=== PATIENT | female | born 1985 | race Hispanic/Latino ===

== ENCOUNTER 2016-02-28 18:02 | Emergency (ER) | payer OTHER ==
[~2016-02-28] VITALS: Ht 160 cm; Wt 101.4 kg
[~2016-02-28 18:02] MED LIST: AMIT10TA6 PO; ASPI-973 PO; CYCL5TAB PO; DIAZ5TAB3 PO; GABA-502 PO; INSU100C8 SUBQ; INSU100V7 SUBQ; PNV91TAB3 PO; SERT50TA9 PO; TRAM50TA2 PO
[2016-02-28 18:05] VITALS: BP 131/83; PULSE 102; RESP 20; O2SAT 96
[2016-02-28 18:50] LABS: BASOPHILS % (AUTO) 0.2 % (0-3); EOSINOPHILS % (AUTO) 2.6 % (0-5); MONOCYTES % (AUTO) 6.1 % (4-12); Mean Corpuscular Hemoglobin 29.1 pg (27.0-35.0); NEUTROPHILS % (AUTO) 69.3 % (40-74); Platelet Count 357 bil/L (150-400)
[2016-02-28 19:09] LABS: Magnesium 1.7 mg/dL (1.6-2.6)
--- NOTE | 2016-02-28 19:27 | ED.REPORT ---
HPI-NVD Date of Service Feb 28, 2016 ED Provider: Mj Ha MD Pt is a 30 year old female with a history of DM who is 11 weeks who presents to the ED with complaints of nausea, vomiting and diarrhea that started earlier today. Pt reports many episodes of watery diarrhea, but denies noticing any blood.Pt reports 3 episodes of vomiting, no hematemesis. She reports that she is supposed to start antibiotics today for a recently diagnosed sinus infection. She reports minimal dysuria Pt denies any vaginal bleeding, sick contacts, abdominal pain, fevers, cough, or any other symptoms. Nursing Notes Stated Complaint: VOMITING/DIARRHEA Chief Complaint: General Complaint Nursing Notes Reviewed: Yes Allergies: Coded Allergies: hydrocodone (Verified Allergy, Severe, RASH, 07/28/15) PT TOLERATES OXYCODONE Scheduled Amitriptyline (Amitriptyline) 10 Mg Tablet 10 MG PO TID Aspirin (Aspirin) 81 Mg Tablet 81 MG PO DAILY Gabapentin (Gabapentin) 300 Mg Capsule 300 MG PO TID Insulin Aspart (NovoLOG U100 Insulin Vial) 100 U/Ml U 30-40 UNIT SUBQ TIDAC Insulin Glargine (Lantus U100 Insulin Vial) 100 Unit/Ml Vial 25-35 UNIT SUBQ BID Sertraline HCl (Sertraline) 50 Mg Tablet 50 MG PO DAILY Scheduled PRN Cyclobenzaprine (Cyclobenzaprine) N Tablet 5-10 MG PO HS PRN PRN For Spasm Diazepam (Diazepam) 5 Mg Tablet 5 MG PO TID PRN PRN For Anxiety Metoclopramide (Reglan) 5 Mg Tablet 5 MG PO QID PRN PRN For Nausea Tramadol (Tramadol) 50 Mg Tablet 50 MG PO HS PRN PRN For Pain Miscellaneous Medications Pnv95/Ferrous Fumarate/FA ( Caplet) 28 Mg Iron-800 Mcg Tablet 1 EACH PO General Time Seen by MD: 19:25 Chief Complaint Nausea, Vomiting, Diarrhea Hx Obtained From: Patient Arrived By: Walk-in Onset Occurred: 9 - 12 hours ago Symptom Duration: Since onset Vomiting: Vomiting food Diarrhea: Diarrhea is watery Location: : No pain Severity: Current: No pain currently Severity: Maximum: No pain Similar Sx Previous: Yes Past Medical History Past Medical History Notes: 11 weeks Past Medical History Diabetes mellitus, on insulin Neuropathy Fatty Liver Hypertension Past Surgical History Reports: Tonsillectomy Family History noncontributory Smoking History Never Smoker Social History Alcohol Use: Denies alcohol use Drug Use: Denies drug use Other Social History: Good social support, Local resident Occupation lives with children Ambulatory Status Independent Review of Systems Constitutional: Denies: Chills, Fever, Malaise, Weakness - generalized GI: Reports: Diarrhea, Nausea, Vomiting, Denies: Abdominal pain, Constipation Skin: Denies Diaphoresis Neurologic: Denies: Change LOC, Dizziness, Headache, Syncope, Weakness Complete sys rev & neg: except as marked. Female: Reports: Physical Exam Initial Vital Signs Vital Signs (First) Date Time Temp Pulse Resp B/P Pulse Ox O2 Delivery O2 Flow Rate FiO2 02/28/16 18:05 36.3 102 20 131/83 96 Room Air Initial VS: Reviewed Head / Eyes: Atraumatic, Normocephalic, PERRL ENT: Mucous membranes moist, Conjunctiva normal, No scleral icterus Neck: Supple, Non-tender, Full range of motion Respiratory: Breath sounds normal, Clear to auscultation, No respiratory distress Cardiovascular: Regular rate & rhythm, Heart sounds normal, Intact distal pulses Skin: Warm, Dry, No cyanosis Neurologic: Alert, Oriented, Nonfocal Psychiatric: Mood/affect normal, Behavior normal, Normal thought content General/Constitutional: Awake, Alert, Well appearing, Well developed, Well nourished, Cooperative Abdomen: Atraumatic, Soft, Non-tender, BS normoactive Interpretation & Diagnostics Lab Results Interpretation Result Diagram: 02/28/16 1838 02/28/16 1838 Test 02/28/16 18:38 02/28/16 20:08 White Blood Count 14.6th/mm3 (3.8-10.1) Red Blood Count 4.44mil/mm3 (3.90-5.20) Hemoglobin 12.9g/dL (12.0-15.6) Hematocrit 38.2% (35.0-46.0) Mean Corpuscular Volume 86.0fL (81-100) Mean Corpuscular Hemoglobin 29.1pg (27.0-35.0) Mean Corpuscular Hemoglobin Concent 33.8% (32.0-37.0) Red Cell Distribution Width 13.6% (12.3-15.4) Platelet Count 357bil/L (150-400) Neutrophils (%) (Auto) 69.3% (40-74) Lymphocytes (%) (Auto) 21.5% (14-46) Monocytes (%) (Auto) 6.1% (4-12) Eosinophils (%) (Auto) 2.6% (0-5) Basophils (%) (Auto) 0.2% (0-3) Sodium Level 134mEq/L (134-144) Potassium Level 4.2mEq/L (3.5-5.2) Chloride Level 98mEq/L (97-108) Carbon Dioxide Level 23mmol/L (18-29) Blood Urea Nitrogen 8mg/dL (6-20) Creatinine 0.40mg/dL (0.57-1.00) Estimat Glomerular Filtration Rate 265mL/min (>59) Glucose Level 140mg/dL (60-99) Calcium Level 10.0mg/dL (8.5-10.1) Magnesium Level 1.7mg/dL (1.6-2.6) Total Bilirubin 0.2mg/dL (0.0-1.2) Aspartate Amino Transf (AST/SGOT) 23U/L (0-50) Alanine Aminotransferase (ALT/SGPT) 21U/L (0-32) Alkaline Phosphatase 98U/L (25-150) Total Protein 8.4g/dL (6.4-8.4) Albumin 3.6g/dL (3.4-5.0) Hold [place] Top Tube Received (Received) Urine Color Yellow (YELLOW) Urine Appearance Hazy (CLEAR,HAZY) Urine pH 5.5 (5.0-8.0) Urine Specific [place] 1.026 (1.003-1.035) Urine Protein Negativemg/dL (NEG,TRACE) Urine Glucose (UA) Negativemg/dL (NEGATIVE) Urine Ketones Negativemg/dL (NEGATIVE) Urine Occult Blood Negative (NEGATIVE) Urine Nitrite Negative (NEGATIVE) Urine Bilirubin Negative (NEGATIVE) Urine Urobilinogen Normalmg/dL (NORMAL) Urine Leukocyte Esterase Negative (NEGATIVE) Urine RBC 0-2/hpf (0-2) Urine WBC 0-5/hpf (0-5) Urine Epithelial Cells Few/hpf (NONE-MOD) Urine Crystals Oxalic acid crystals (NONE Urine Bacteria Few/hpf (NONE-FEW) Urine Hyaline Casts None/lpf (NONE) Urine Granular Casts None seen (NONE SEEN) Urine Waxy Casts None seen (NONE SEEN) Urine Red Blood Cell Casts None seen (NONE SEEN) Urine White Blood Cell Casts None seen (NONE SEEN) Urine Mucus Present (None Seen) Urine Trichomonas None seen (NONE SEEN) Urine Yeast None (NONE SEEN) Urinalysis Comment None Urine Culture Reflexed Not indicated Re-Eval/Medical Decision Med Decision/Clinical Course 30-year-old female 11 weeks presenting with diarrhea and vomiting since earlier today. Reports watery diarrhea nonbloody nonbilious vomiting. Mild abdominal cramping. Vital signs stable. Labs unremarkable. Patient was given 4 mg Zofran and 1 L normal saline and felt much better. Likely viral gastroenteritis. Gave prescription for Reglan to use as needed for nausea and vomiting. Return precautions given. Source of Hx: Old records Re-Evaluation/Progress : Time of Eval: 21:17 Re-Evaluation/Progress Note: Pt is rechecked and informed of her diagnosis and the plan to discharge her at this time. She understands and agrees, all questions are addressed. Counseled Regarding: Diagnosis, Lab results, When/why to return to ED Discharge & Departure Impression: Primary Impression: Gastroenteritis Disposition: Home Discharge Condition All VS Reviewed: Yes Condition: Stable Patient Instructions: Gastroenteritis (ED) Additional Instructions: I believe you are experiencing a gastroenteritis today. Please increase your hydration, and take Zofran as needed to control your nausea. Follow up with your primary care later this week, or sooner if your symptoms are not improving. Return to the emergency department with any intractable vomiting, fevers, or any other worsening or concerning symptoms. I hope you start to feel better soon Referrals: Murphy Roger MD (PCP) [place] Attestation Portions of this note were transcribed by Beverley Valderrama. I, Dr. Ha personally performed the history, physical exam and medical decision-making; I reviewed and confirmed the accuracy of the information in the transcribed note. Signed by: Patricia Kyle, 02/28/2016 [id number] copies to: Murphy Roger MD, Ben M MD Feb 28, 2016 19:27 KELSEY VALDERRAMA Feb 28, 2016 19:55
[2016-02-28] MEDS ORDERED: 0.9% Sodium Chloride 1,000 ML IV ONE (19:53)
[2016-02-28] MEDS ORDERED: Ondansetron 2 mg/mL 2 mL Inj IVPUSH ONE (19:55)
[2016-02-28 20:34] LABS: APPEARANCE,URINE HAZY (CLEAR,HAZY); COLOR,URINE YELLOW (YELLOW); OCCULT BLOOD,URINE NEGATIVE (NEGATIVE); PH,URINE 5.5 (5.0-8.0); UROBILINOGEN,URINE NORMAL (NORMAL)
[2016-02-28] MEDS ORDERED: METO5TAB78 PO (21:22)
[2016-02-28 21:38] VITALS: BP 124/78; PULSE 97; RESP 16; O2SAT 97
== END 2016-02-28 21:39 | disposition home or self-care (01) ==
LOC: SED 18:02
DX: O99.611 Diseases of the digestive system complicating pregnancy, first trimester (principal); K52.9 Noninfective gastroenteritis and colitis, unspecified; E11.9 Type 2 diabetes mellitus without complications; I10 Essential (primary) hypertension; Z3A.11 11 weeks gestation of pregnancy; Z79.4 Long term (current) use of insulin; Z79.82 Long term (current) use of aspirin; Z88.5 Allergy status to narcotic agent
CPT/HCPCS: 36415; 80053; 81000; 83735; 85025; 96361; 96374; 99284; J2405; J7030

== ENCOUNTER 2016-03-18 09:17 | Emergency (ER) | payer OTHER ==
[~2016-03-18] VITALS: Ht 160 cm; Wt 102.3 kg
[~2016-03-18 09:17] MED LIST changes: +METO5TAB78 PO
[2016-03-18 09:24] VITALS: BP 125/80; PULSE 96; RESP 16; O2SAT 97
--- NOTE | 2016-03-18 09:34 | ED.REPORT ---
HPI-Headache Date of Service Mar 18, 2016 ED Provider: Dr. Pretty 30 year old female with a history of migraines and current 14 week presents to the ED due to a severe frontal headache since last night. Pain is exacerbated with movement of the head. Associated symptoms include nausea. Pt states this feels similar to previous migraines. Pt denies injury, fever, vomiting and weakness. Nursing Notes Stated Complaint: MIGRAINE Chief Complaint: Headache Nursing Notes Reviewed: Yes Allergies: Coded Allergies: hydrocodone (Verified Allergy, Severe, RASH, 07/28/15) PT TOLERATES OXYCODONE Scheduled Amitriptyline (Amitriptyline) 10 Mg Tablet 10 MG PO TID Aspirin (Aspirin) 81 Mg Tablet 81 MG PO DAILY Gabapentin (Gabapentin) 300 Mg Capsule 300 MG PO TID Insulin Aspart (NovoLOG U100 Insulin Vial) 100 U/Ml U 30-40 UNIT SUBQ TIDAC Insulin Glargine (Lantus U100 Insulin Vial) 100 Unit/Ml Vial 25-35 UNIT SUBQ BID Sertraline HCl (Sertraline) 50 Mg Tablet 50 MG PO DAILY Scheduled PRN Cyclobenzaprine (Cyclobenzaprine) N Tablet 5-10 MG PO HS PRN PRN For Spasm Diazepam (Diazepam) 5 Mg Tablet 5 MG PO TID PRN PRN For Anxiety Metoclopramide (Reglan) 5 Mg Tablet 5 MG PO QID PRN PRN For Nausea Tramadol (Tramadol) 50 Mg Tablet 50 MG PO HS PRN PRN For Pain Miscellaneous Medications Pnv95/Ferrous Fumarate/FA ( Caplet) 28 Mg Iron-800 Mcg Tablet 1 EACH PO General Time Seen by MD: 09:33 Chief Complaint Headache Hx Obtained From: Patient Arrived By: Walk-in Sudden in Onset?: No Onset Occurred: Yesterday Symptom Duration: Since onset Location: : Frontal bilateral Quality: Painful Severity: Current: Moderate Associated with: Reports: Nausea, Denies: Fever Similar Sx Previous: Yes Risk-Headache )( SAH Risk Stratification RF Statements: Risk factors reviewed )( IC Mass Risk Stratification RF Statements: Risk factors reviewed Past Medical History Past Medical History Notes: 14 weeks - Had Cervical cerclage earlier this week Past Medical History Diabetes mellitus, on insulin Neuropathy Fatty Liver Hypertension Reports: Migraines Past Surgical History Reports: Tonsillectomy Family History noncontributory Smoking History Never Smoker Social History Alcohol Use: Denies alcohol use Drug Use: Denies drug use Other Social History: Good social support, Local resident Occupation lives with children Ambulatory Status Independent Review of Systems Basic Review of Systems Respiratory: No shortness of breath, No cough, No wheeze Cardiovascular: No chest pain, No dyspnea on exertion, No orthopnea, No parox noct dyspnea, No palpitations Constitutional: Denies: Fever GI: Reports: Nausea, Denies: Vomiting Skin: Denies Rash Neurologic: Reports: Headache, Denies: Weakness Complete sys rev & neg: except as marked. Physical Exam Initial Vital Signs Vital Signs (First) Date Time Temp Pulse Resp B/P Pulse Ox O2 Delivery O2 Flow Rate FiO2 03/18/16 09:24 36.8 96 16 125/80 97 Room Air Initial VS: Reviewed ENT: Mucous membranes moist, Conjunctiva normal, No scleral icterus Respiratory: Breath sounds normal, Clear to auscultation, No respiratory distress Cardiovascular: Regular rate & rhythm, Heart sounds normal, Intact distal pulses Abdomen / GI: Soft, Non-tender, No guarding, No rebound, No distention Extremities: Vascular intact, Neuro intact, No swelling, No tenderness Skin: Warm, Dry, No cyanosis Psychiatric: Mood/affect normal, Behavior normal, Normal thought content General/Constitutional: Awake, Alert, Cooperative Head / Eyes: Atraumatic, Normocephalic, PERRL, EOMI, No scleral icterus, Conjunctiva NL Neck: Atraumatic, Supple, Full range of motion Neurologic: Oriented X3, Speech NL, No motor deficits (Mold Polisher strength normal), No sensory deficits, CN II - XII intact, Cerebellar NL Interpretation & Diagnostics Lab Results Interpretation Test 03/18/16 10:05 Hold Purple Top Tube Received (Received) Hold [place] Top Tube Received (Received) Re-Eval/Medical Decision Re-Evaluation/Progress : Time of Eval: 11:47 Re-Evaluation/Progress Note: Pt's headache is much improved. Discussed plan for discharge and follow up. All questions addressed. Counseled Regarding: Diagnosis, Need for follow-up, When/why to return to ED Discharge & Departure Impression: Primary Impression: Headache Headache type: unspecified Headache chronicity pattern: acute headache Intractability: not intractable Qualified Code: R51 - Headache Disposition: Home Discharge Condition All VS Reviewed: Yes Condition: Improved Patient Instructions: Acute Headache (ED) Additional Instructions: No dangerous cause for your headache is suspected at this time. I recommend follow up with her OB doctor next week if the headache persists to any significant degree. Referrals: Murphy Roger MD (PCP) Scribe Attestation Portions of this note were transcribed by Maxine Tran. I, (Dr. Pretty) personally performed the history, physical exam and medical decision-making; I reviewed and confirmed the accuracy of the information in the transcribed note. Signed by: Maxine Tran. 03/18/2016, 1148 copies to: Murphy Roger MD, Kirk H MD Mar 18, 2016 09:33 Maxine Tran Mar 18, 2016 09:39
[2016-03-18] MEDS ORDERED: 0.9% Sodium Chloride 1,000 ML IV ONE (09:38)
[2016-03-18] MEDS ORDERED: MetoCLOpramide 5 mg/mL 2 mL Inj IVPUSH ONE (09:40)
[2016-03-18] MEDS ORDERED: Acetaminophen IV 1,000 MG in IV Premix 1 EACH IV ONE (09:40)
[2016-03-18 12:03] VITALS: BP 121/76; PULSE 97; RESP 16; O2SAT 97
== END 2016-03-18 12:04 | disposition home or self-care (01) ==
LOC: SED 09:17
DX: O99.89 Other specified diseases and conditions complicating pregnancy, childbirth and the puerperium (principal); R51 Headache; R11.0 Nausea; E11.40 Type 2 diabetes mellitus with diabetic neuropathy, unspecified; I10 Essential (primary) hypertension; Z3A.14 14 weeks gestation of pregnancy; Z88.5 Allergy status to narcotic agent; Z79.82 Long term (current) use of aspirin; Z79.4 Long term (current) use of insulin
CPT/HCPCS: 96361; 96374; 96375; 99284; J0131; J1200; J2765; J7030

== ENCOUNTER 2016-05-03 11:18 | Emergency (ER) | payer OTHER ==
[~2016-05-03] VITALS: Ht 157.5 cm; Wt 104.5 kg
[2016-05-03 11:31] VITALS: BP 122/73; PULSE 92; RESP 14; O2SAT 97
[2016-05-03] MEDS ORDERED: INSU500V SUBQ (11:40)
[2016-05-03] MEDS ORDERED: ATEN25TA PO (11:40)
[2016-05-03] MEDS ORDERED: NPH,100I SUBQ (11:40)
[2016-05-03] MEDS ORDERED: METF500T4 PO ×2 (11:40)
[2016-05-03] MEDS ORDERED: HYDR250V8 PO (11:40)
[2016-05-03 14:01] VITALS: BP 117/72; PULSE 103; RESP 16; O2SAT 96
--- NOTE | 2016-05-03 14:47 | ED.REPORT ---
HPI-Headache Date of Service May 03, 2016 ED Provider: Doc,Ed MD The patient is a 30 year old A1 female with history of hypertension and diabetes mellitus who presents to the emergency department complaining of a headache that began last night around 1900. Her pain is located to the frontal region bilaterally and radiates into her neck. Her pain is currently a 9/10. She has also noticed nausea, dizziness, bilateral tinnitus, photophobia, and blurred vision. She took Tylenol with no relief. She denies fever, chills, diarrhea or vomiting. She is currently 20 weeks . She had similar symptoms about 3-4 months ago. Nursing Notes Stated Complaint: MIGRAINE/DIZZY/FAINT Chief Complaint: Headache Nursing Notes Reviewed: Yes Allergies: Coded Allergies: hydrocodone (Verified Allergy, Severe, RASH, 05/03/16) PT TOLERATES OXYCODONE Scheduled Amitriptyline (Amitriptyline) 10 Mg Tablet 30 MG PO HS Aspirin (Aspirin) 81 Mg Tablet 81 MG PO DAILY Atenolol (Atenolol) 25 Mg Tablet 12.5 MG PO BID Gabapentin (Gabapentin) 300 Mg Capsule 600 MG PO BID Hydroxyprogesterone Caproate ([place]) 250 Mg/Ml (1 Ml) Vial 250 MG PO every saturday Insulin Regular, Human (HUMulin-R U-500 Insulin Vial) 500 Unit/1 Ml Vial 90 UNIT SUBQ TIDWM Metformin (Metformin) 500 Mg Tablet 1,000 MG PO BIDAC Metformin (Metformin) 500 Mg Tablet 500 MG PO noon NPH, Human Insulin Isophane (HUMulin-N U100 Insulin Kwikpen) 100 Unit/1 Ml Insuln.pen 90 UNIT SUBQ HS Sertraline HCl (Sertraline) 50 Mg Tablet 100 MG PO DAILY Scheduled PRN Cyclobenzaprine (Cyclobenzaprine) N Tablet 5-10 MG PO HS PRN PRN For Spasm Miscellaneous Medications Pnv95/Ferrous Fumarate/FA ( Caplet) 28 Mg Iron-800 Mcg Tablet 1 EACH PO General Time Seen by MD: 14:46 Chief Complaint Headache Hx Obtained From: Patient Arrived By: Walk-in Sudden in Onset?: Yes Onset Occurred: Yesterday Symptom Duration: Since onset Location: : Frontal bilateral Quality: Painful Radiation: : Neck, anterior Severity: Current: Pain level 9 out of 10 Severity: Maximum: Severe Recent Healthcare: No recent doctor visit, No recent hospitalization Similar Sx Previous: Yes Past Medical History Past Medical History Diabetes mellitus, on insulin Neuropathy Fatty Liver Hypertension Reports: Migraines Past Surgical History Reports: Tonsillectomy Family History noncontributory Smoking History Never Smoker Social History Alcohol Use: Denies alcohol use Drug Use: Denies drug use Other Social History: Good social support, Local resident Occupation lives with children Ambulatory Status Independent Review of Systems Constitutional: Denies: Chills, Fever Eyes: Reports: Blurred bilateral, Photophobia Ears / Nose / Throat: Reports: Ear ringing bilateral GI: Reports: Nausea, Denies: Diarrhea, Vomiting Musculoskeletal: Reports: Neck pain Neurologic: Reports: Dizziness, Headache, Vision change Complete sys rev & neg: except as marked. Female: Reports: Physical Exam Initial Vital Signs Vital Signs (First) Date Time Temp Pulse Resp B/P Pulse Ox O2 Delivery O2 Flow Rate FiO2 05/03/16 11:31 37.3 92 14 122/73 97 Room Air Initial VS: Reviewed ENT: Mucous membranes moist, Conjunctiva normal, No scleral icterus Respiratory: Breath sounds normal, Clear to auscultation, No respiratory distress Cardiovascular: Regular rate & rhythm, Heart sounds normal, Intact distal pulses Abdomen / GI: Soft, Non-tender, No guarding, No rebound, No distention Lymphatic: No lymphadenopathy Extremities: Vascular intact, Neuro intact, No swelling, No tenderness Skin: Warm, Dry, No cyanosis Psychiatric: Mood/affect normal, Behavior normal, Normal thought content General/Constitutional: Awake, Alert Head / Eyes: Atraumatic, Normocephalic, PERRL, EOMI, No nystagmus, No photophobia, Conjunctiva NL, Temporal arteries NL Neck: Atraumatic, Supple, No meningismus, Full range of motion, No swelling, Non-tender, No masses Neurologic: Oriented X3, Speech NL, No motor deficits, No sensory deficits, Cerebellar NL Interpretation & Diagnostics Interpretation & Diagnostics: Bedside US: good movement, heart tones at 140 Re-Eval/Medical Decision Source of Hx: Old records Re-Evaluation/Progress : Time of Eval: 16:34 Re-Evaluation/Progress Note: Rechecked the patient. She is feeling much better. Discussed plan for discharge. All questions were addressed. Counseled Regarding: Diagnosis, Need for follow-up, When/why to return to ED Discharge & Departure Impression: Primary Impression: Headache Headache type: unspecified Headache chronicity pattern: unspecified pattern Intractability: not intractable Qualified Code: R51 - Headache Additional Impression: Weeks of gestation: 20 weeks Qualified Code: Z3A.20 - 20 weeks gestation of Disposition: Home Discharge Condition All VS Reviewed: Yes Condition: Stable Additional Instructions: Thank you for entrusting us with your care today. We treated your headache and nausea with Toradol, Zofran, Benadryl, and gave you IV fluids to re-hydrate you. We also performed an ultrasound on your baby and confirmed that she is active and her heart is beating appropriately. If at any time you feel that your headaches are worsening or your nausea returns and is unresponsive to [id number] medications, please do not hesitate to return to the Emergency Department or contact your primary care physician for further care. Referrals: Murphy Roger MD (PCP) Scribe Attestation Portions of this note were transcribed by Soheila Lamas. I, Dr. Benites personally performed the history, physical exam and medical decision-making; I reviewed and confirmed the accuracy of the information in the transcribed note. Signed by: Patricia Pereira, 05/03/2016 at 1720. copies to: Murphy Roger MD, Shawna L MD May 03, 2016 14:47 Soheila Lamas May 03, 2016 14:55
[2016-05-03] MEDS ORDERED: 0.9% Sodium Chloride 1,000 ML IV ONE (14:48)
[2016-05-03] MEDS ORDERED: Ondansetron 2 mg/mL 2 mL Inj IVPUSH ONE (14:50)
[2016-05-03 16:54] VITALS: BP 134/65; PULSE 91; O2SAT 98
== END 2016-05-03 16:55 | disposition home or self-care (01) ==
LOC: SED 11:18
DX: O26.892 Other specified pregnancy related conditions, second trimester (principal); R51 Headache; R42 Dizziness and giddiness; O21.0 Mild hyperemesis gravidarum; O99.89 Other specified diseases and conditions complicating pregnancy, childbirth and the puerperium; H93.13 Tinnitus, bilateral; H53.143 Visual discomfort, bilateral; E11.40 Type 2 diabetes mellitus with diabetic neuropathy, unspecified; I10 Essential (primary) hypertension; Z3A.20 20 weeks gestation of pregnancy; Z79.4 Long term (current) use of insulin; Z79.82 Long term (current) use of aspirin; Z79.84 Long term (current) use of oral hypoglycemic drugs; Z88.5 Allergy status to narcotic agent
CPT/HCPCS: 96361; 96374; 96375; 99284; J1200; J1885; J2405; J7030

== ENCOUNTER 2016-07-11 17:25 | Observation (INO) | payer OTHER ==
[~2016-07-11 17:25] MED LIST changes: +ATEN25TA PO; -DIAZ5TAB3 PO; +HYDR250V8 PO; -INSU100C8 SUBQ; -INSU100V7 SUBQ; +INSU500V SUBQ; +METF500T4 PO; -METO5TAB78 PO; +NPH,100I SUBQ; -TRAM50TA2 PO
[2016-07-11 18:34] LABS: Mean Corpuscular Hemoglobin 27.6 pg (27.0-35.0); Mean Corpuscular Volume 84.1 fL (81-100)
[2016-07-11 19:02] VITALS: PULSE 82
[2016-07-11] MEDS ORDERED: Magnesium Sulf 4 Gm/100 mL H2O 4 GM in IV Premix 1 EACH IV ONE (20:55)
[2016-07-11] MEDS ORDERED: Calcium GLUCOnate 10% (Gm) 1 Gm/10 mL Inj IV PRN (20:55)
[2016-07-11] MEDS ORDERED: Magnesium Sulfate 20 Gm/500 mL Water Premix IV ONE (20:58)
[2016-07-11] MEDS ORDERED: Magnesium Sulfate 4 Gm/100 mL Water Premix IV ONE (20:58)
[2016-07-11] MEDS ORDERED: Magnesium Sulf 20 Gm/500mL H2O 20 GM in IV Premix 1 EACH IV SCH (21:00)
[2016-07-11] MEDS ORDERED: LidocaineVisc 2%:Antacid 1:1 10 mL Syringe PO SCH (21:00)
--- NOTE | 2016-07-11 23:26 | HP ---
[address] [address] HISTORY AND PHYSICAL/Transfer and Discharge Note PATIENT: MEREDITH GONSALVES : 1985 MR#: [id number] ADMIT: 07/11/2016 JOB ID: [id number] CHIEF COMPLAINT: Elevated blood pressure. HISTORY OF PRESENT ILLNESS: This is a 30-year-old, G5, P0-3-1-3 female at 30 plus 2 weeks' gestational age with an EDC of September 17, 2016, who is being admitted with chronic hypertension with superimposed pre-eclampsia. Her is complicated by chronic hypertension on atenolol 25 mg p.o. b.i.d., last seen by MFM yesterday as well as poorly controlled type 2 diabetes mellitus on U500 pen 130 q.a.m., 130 afternoon, 130 q.p.m. with meals as well as metformin 1000 q.a.m., 500 in the afternoon, and 1000 q.h.s.; morbid obesity; history of labor times three with history of cerclages required in all of her previous pregnancies with a prophylactic cerclage placed at 13 weeks in this ; Graves disease on PTU during last without any medications currently; fibromyalgia; depression; anxiety on Zoloft and diazepam; as well as depression; and fatty liver disease with LFTs in the 60s in the first trimester of the as well as an abnormal first trimester screen with an elevated Down syndrome risk with normal cell free DNA. The patient presented to labor and delivery this afternoon complaining of headache and elevated blood pressure at home. Her blood pressure was checked on labor and delivery and was ranging from 140s-170s/60s-70s diastolic. Additionally, she was complaining of a headache, vision changes, and epigastric pain as well as contractions PAST MEDICAL HISTORY: As noted in the HPI above. SURGICAL HISTORY: Cerclage times four, tonsillectomy. OBSTETRICAL HISTORY: She has had three deliveries between 34 and 35 weeks. The first one was required a rescue cerclage in early , and her last three have been prophylactic cerclages placed in the first trimester. She also has had one incomplete . SOCIAL HISTORY: She denies any tobacco, alcohol, or drug use. FAMILY HISTORY: Noncontributory at this time. MEDICATIONS INCLUDE: 1. Atenolol 25 mg b.i.d. 2. Insulin and metformin as noted above. 3. Zoloft and diazepam for her anxiety. 4. Gabapentin. 5. Cyclobenzaprine. 6. Dicyclomine. 7. Colace. 8. Baby aspirin. 9. Weekly 17 OHP shots. ALLERGIES: She has an allergy to HYDROCODONE. OBJECTIVE: Her blood pressures have ranged 140s-170s over 60s to 90s diastolic. Her heart rate has ranged 80s to 100s. Her respiratory rate is 22. Her temperature is 38 degrees or 100.4. In general, she is awake, alert, oriented. She appears uncomfortable in bed. She attributes this to her contractions and her headache. Her heart shows regular rate and rhythm. Her lungs are clear to auscultation bilaterally. She is complaining of epigastric pain. Her abdomen is soft. It is nontender and nondistended. Her extremities show 1+ lower extremity edema. She has 3+ patellar reflexes bilaterally, and she does have bilateral clonus present of up to 3 beats bilaterally. Sterile vaginal exam with speculum reveals that there is no abnormal discharge or bleeding from the vaginal vault. Her cervix is visually closed. On check her cervix is closed thick and high with a cerclage palpable. On heart rate monitoring her babies baseline is 165 baseline, moderate variability with mild variable decelerations and accelerations present. 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 LABORATORY DATA: O-positive antibody screen negative, rubella immune, varicella immune, hep B surface antigen negative, RPR nonreactive, HIV negative. She is GBS unknown. Her labs on Labor and Delivery show white count 10.7, hemoglobin of 10.9, platelets of 255. Her sodium is 133. Her potassium was 4.3. Chloride is 100. CO2 is 20. BUN is 9, creatinine 0.49. Her glucose is 186. Her AST is 23, ALT is 11. Her protein creatinine ratio is 1.4. An EKG at the bedside was borderline with possible left atrial enlargement. ASSESSMENT: This is a 30-year-old, G5, P0-3-1- 3 female at 30+2 weeks gestational age presenting to Labor and Delivery complaining of elevated blood pressure with headaches, vision changes, and severe range blood pressures on examination with laboratory data consistent with chronic hypertension with superimposed severe preeclampsia. She additionally does have several other chronic medical issues including type 2 diabetes mellitus which is improving and controlled, but requires large doses of insulin and fatty liver disease, depression and anxiety, morbid obesity, history of labor with cervical incompetence requiring cerclage with prophylactic cerclage in place currently. PLAN: At this point in time, I am concerned about the patient given her early gestational age and severe superimposed preeclampsia on top of her chronic hypertension. I have discussed her care with Dr. Ulrich at the [facility], and she has accepted a transfer of the patient at this time. Additionally for her severe blood pressures with headaches and abnormal findings on examination Magnesium will be started with 4 g load and 2 g/hour after this. She is given Tylenol for her headache as her liver function testing at this time is noted to be within normal limits. She will be followed by Maternal Medicine in evaluation of her contractions. She did receive 2 doses of terbutaline on Labor and Delivery. However, if she continues to contract her cerclage may need to be removed. Her temperatures will also be trended as well given her elevated temperature and tachycardia. Risks and benefits of transfer have been discussed with the patient, and she will be transfer to at this time. REJI
== END 2016-07-11 21:45 | disposition short-term general hospital (02) ==
LOC: FBCO 17:25 → FBC 21:15
PROVIDERS: ADMIT Obstetrics & Gynecology; ATTEND Obstetrics & Gynecology
DX: O60.03 Preterm labor without delivery, third trimester (principal); P00.0 Newborn affected by maternal hypertensive disorders; O24.113 Pre-existing type 2 diabetes mellitus, in pregnancy, third trimester; E66.01 Morbid (severe) obesity due to excess calories; M79.7 Fibromyalgia; F53 Mental and behavioral disorders associated with the puerperium, not elsewhere classified; K76.0 Fatty (change of) liver, not elsewhere classified; G44.89 Other headache syndrome; Z87.51 Personal history of pre-term labor; Z79.84 Long term (current) use of oral hypoglycemic drugs; Z79.4 Long term (current) use of insulin; Z3A.30 30 weeks gestation of pregnancy
CPT/HCPCS: 36415; 59025; 80053; 82570; 84156; 85027; 93005; 96374; G0378; J3105; J3475